=== PATIENT | female | born 2000 | race African-American/Black ===

== ENCOUNTER 2022-07-30 23:55 | Day surgery (SDC) | payer MEDICAID ==
[2022-07-31 00:07] VITALS: BMI 23.2
[2022-07-31] MEDS ORDERED: hydrALAZINE 20 MG/ML VIAL SLOW IVP PRN (01:33)
[2022-07-31] MEDS ORDERED: Acetaminophen/Codeine 30-300mg Tablet PO SCH (01:45)
== END 2022-07-31 02:15 | disposition home or self-care (01) ==
LOC: CSHLD/OP 23:55
PROVIDERS: ATTEND Obstetrics & Gynecology
DX: O98.512 Other viral diseases complicating pregnancy, second trimester (principal); U07.1 COVID-19; O26.892 Other specified pregnancy related conditions, second trimester; R10.2 Pelvic and perineal pain; Z88.1 Allergy status to other antibiotic agents; Z88.8 Allergy status to other drugs, medicaments and biological substances; Z79.899 Other long term (current) drug therapy; Z3A.24 24 weeks gestation of pregnancy
CPT/HCPCS: 96360; 96361; 99282